=== PATIENT | female | born 1995 | race Caucasian/White ===

== ENCOUNTER 2022-12-11 11:14 | Outpatient (CLI) | payer OTHER, SELFPAY ==
[2022-12-11 12:16] LABS: Basophils Percent Auto 0.4 % (0.2-1.2); Eosinophils Absolute Auto 0.1 K/mm3 (0-0.3); Eosinophils Percent Auto 0.7 % (0-4.4); Hematocrit 38.9 % (37.0-47.0); Hemoglobin 12.7 g/dL (12.0-15.0); Immature Granulocyte Absolute 0.01 K/mm3 (0.00-0.031); Immature Granulocyte Percent A 0.1 % (0-0.5); Lymphocytes Absolute Auto 1.54 K/mm3 (0.9-3.2); Lymphocytes Percent Auto 22.5 % (18.3-44.2); Mean Corpuscular HGB Conc 32.6 g/dl (32-36); Mean Corpuscular Hemoglobin 29.6 pg (26-34); Mean Corpuscular Volume 90.7 fl (80-100); Mean Platelet Volume 10.9 fl (7.4-10.4); Monocytes Absolute Auto 0.6 K/mm3 (0.1-0.6); Monocytes Percent Auto 8.5 % (2.6-8.5); Neutrophils Absolute Auto 4.6 K/mm3 (1.3-6.7); Neutrophils Percent Auto 67.8 % (45.5-73.1); Platelet Count Result 220 k/mm3 (150-375); Red Blood Count 4.29 M/mm3 (4.2-5.4); Red Cell Distribution Width 12.7 % (11.5-14.5); White Blood Count 6.9 K/mm3 (4.5-10.0)
[2022-12-11 13:02] LABS: Hepatitis B Surface Antigen Negative (Negative); Rubella IgG Antibody 20.6 IU/ML
[2022-12-11 13:09] LABS: HIV 1/2 Ab P24 Ag Result Negative (Negative)
[2022-12-11 14:26] LABS: Rapid Plasma Reagin Non-Reactive (NonReactive)
== END 2022-12-11 11:15 | disposition home or self-care (01) ==
PROVIDERS: Visit Provider Student in an Organized Health Care Education/Training Program
DX: N94.89 Other specified conditions associated with female genital organs and menstrual cycle (principal)
CPT/HCPCS: 36415; 84702; 85025; 86592; 86644; 86703; 86747; 86762; 86787; 86850; 86900; 86901; 87086; 87340; G0432

== ENCOUNTER 2023-01-13 15:37 | Emergency (ER) | payer OTHER, SELFPAY ==
[2023-01-13 15:47] VITALS: BP 97/58; PULSE 97; RESP 16; TEMP 37; O2SAT 99
== END 2023-01-13 17:36 | disposition left against medical advice (07) ==
PROVIDERS: Emergency Provider Nurse Practitioner Family
DX: Z53.21 Procedure and treatment not carried out due to patient leaving prior to being seen by health care provider (principal)
CPT/HCPCS: 99199

== ENCOUNTER 2023-04-18 07:35 | Observation (INO) | payer OTHER, SELFPAY ==
[2023-04-18 08:30] VITALS: BP 92/46; PULSE 78; RESP 16; TEMP 37; BMI 22.2
--- NOTE | 2023-04-18 08:30 | OBADM ---
This patient, Carleen Jauregui, admitted to the OB room 116 for observation. Patient/family oriented to hospital policies and general routines including ID bracelet, bed and alarms, visiting hours, pain management, procedures, bathroom and other care routines, personal items, smoking policy, room service/diet, and visiting hours. Patient/Family are encouraged to report perceived risks to care and to ask questions if they do not understand what they are told or what they should do.
[2023-04-18 08:32] VITALS: BP 94/41; PULSE 79
[2023-04-18 09:08] VITALS: BP 99/54; PULSE 79
--- NOTE | 2023-04-19 12:13 | PM.OBTRLD ---
OB - Triage/Final Diagnosis Visit Information Comments/Additional reasons for admission: I have assessed the risk for this patient, Carleen Jauregui, and determined that she would benefit from observation care. Final Diagnosis (1) Abdominal pain affecting : Code(s): O26.899 - Other specified related conditions, unspecified trimester; R10.9 - Unspecified abdominal pain Status: Acute
== END 2023-04-18 09:57 | disposition home or self-care (01) ==
LOC: ANHLDR 04-19 09:40 → ANHOBPP 04-19 09:40
PROVIDERS: Admitting Provider Obstetrics & Gynecology; Visit Provider Obstetrics & Gynecology
DX: O26.892 Other specified pregnancy related conditions, second trimester (principal); R10.9 Unspecified abdominal pain; Z3A.26 26 weeks gestation of pregnancy
CPT/HCPCS: G0378; G0379

== ENCOUNTER 2023-05-06 12:02 | Outpatient (CLI) | payer OTHER, SELFPAY ==
[2023-05-06 13:49] LABS: Basophils Percent Auto 0.3 % (0.2-1.2); Eosinophils Absolute Auto 0.1 K/mm3 (0-0.3); Hematocrit 35.1 % (37.0-47.0); Hemoglobin 10.9 g/dL (12.0-15.0); Immature Granulocyte Absolute 0.03 K/mm3 (0.00-0.031); Immature Granulocyte Percent A 0.3 % (0-0.5); Lymphocytes Absolute Auto 1.22 K/mm3 (0.9-3.2); Lymphocytes Percent Auto 13.8 % (18.3-44.2); Mean Corpuscular HGB Conc 31.1 g/dl (32-36); Mean Corpuscular Hemoglobin 29.1 pg (26-34); Mean Corpuscular Volume 93.9 fl (80-100); Mean Platelet Volume 10.6 fl (7.4-10.4); Monocytes Absolute Auto 0.5 K/mm3 (0.1-0.6); Monocytes Percent Auto 5.8 % (2.6-8.5); Neutrophils Percent Auto 78.8 % (45.5-73.1); Platelet Count Result 195 k/mm3 (150-375); Red Blood Count 3.74 M/mm3 (4.2-5.4); Red Cell Distribution Width 13.8 % (11.5-14.5); White Blood Count 8.9 K/mm3 (4.5-10.0)
[2023-05-06 14:05] LABS: Glucose 1 Hour PP 50gm Dose 134 mg/dL
[2023-05-06 14:39] LABS: HIV 1/2 Ab P24 Ag Result Negative (Negative)
== END 2023-05-06 12:03 | disposition home or self-care (01) ==
LOC: ANHLAB 12:05
PROVIDERS: Visit Provider Obstetrics & Gynecology
DX: Z34.90 Encounter for supervision of normal pregnancy, unspecified, unspecified trimester (principal); Z3A.00 Weeks of gestation of pregnancy not specified
CPT/HCPCS: 36415; 82947; 85025; 86703; G0432

== ENCOUNTER 2023-05-10 07:31 | Outpatient (CLI) | payer OTHER, SELFPAY ==
[2023-05-10 08:26] LABS: Glucose Fasting Gestational 83 mg/dL (>/=95)
[2023-05-10 10:51] LABS: Glucose 1 Hour Gest 158 mg/dL (>/=180)
[2023-05-10 11:09] LABS: Glucose 2 Hour Gest 163 mg/dL (>/= 155)
[2023-05-10 12:19] LABS: Glucose 3 Hour Gest 107 mg/dL (>/=140)
== END 2023-05-10 07:32 | disposition home or self-care (01) ==
LOC: ANHLAB 07:34
PROVIDERS: Visit Provider Obstetrics & Gynecology
DX: R73.09 Other abnormal glucose (principal)
CPT/HCPCS: 36415; 82951; 82952

== ENCOUNTER 2023-06-07 09:10 | Outpatient (CLI) | payer OTHER, SELFPAY ==
--- NOTE | ~2023-06-07 | US_ITS ---
EXAMINATION: US OB follow up DATE: 06/07/2023 09:38 INDICATION: Evaluate growth and amniotic fluid index TECHNIQUE: Real-time transabdominal obstetric ultrasound. FINDINGS: No prior studies for comparison. There is a single living fetus in vertex presentation. The placenta is posterior without placenta pr evia. Cervical length 3.1 cm. ANDREW is normal measuring 12.1 cm. cardiac activity and movement is noted with a heart rate of 137 beats per minute. T he amniotic fluid volume is normal. The following biometric data were obtained: BPD: 83mm corresponds to gestational age 33 weeks 2 days. Head circumference: 313mm corresponds to gestational age 35 weeks 1 days. Abdominal circumference: 303mm corresponds to gestational age 34 weeks 2 days. Femur length: 66mm corresponds to gestational age 34 weeks 0 days. Estimated weight: 2371grams +/- 356grams, 65.9%.] IMPRESSION: 1. Single living intrauterine in vertex presentation with an estimated gestational age of 34 weeks 1 days by current ultrasound. 2. Normal placenta. Reviewed, dictated and finalized at location B. IMPRESSION: 1. Single living intrauterine in vertex presentation with an estimat ed gestational age of 34 weeks 1 days by current ultrasound. 2. Normal placenta.
== END 2023-06-07 09:11 ==
LOC: MICIMG 09:10
PROVIDERS: PCP Obstetrics & Gynecology; Visit Provider Obstetrics & Gynecology
DX: Z34.93 Encounter for supervision of normal pregnancy, unspecified, third trimester (principal); Z3A.34 34 weeks gestation of pregnancy
CPT/HCPCS: 76816

== ENCOUNTER 2023-06-15 23:41 | Observation (INO) | payer OTHER, SELFPAY ==
[2023-06-16 00:06] VITALS: BP 116/68; PULSE 97
[2023-06-16 00:14] VITALS: BMI 25.2
--- NOTE | 2023-06-16 00:14 | OBADM ---
This patient, Carleen Jauregui, admitted to the OB room Labor/Delivery/Recovery 104 for observation. Patient/family oriented to hospital policies and general routines including ID bracelet, bed and alarms, visiting hours, pain management, procedures, bathroom and other care routines, personal items, smoking policy, room service/diet, and visiting hours. Patient/Family are encouraged to report perceived risks to care and to ask questions if they do not understand what they are told or what they should do.
[2023-06-16 00:56] LABS: Appearance Urine Cloudy (Clear); Bacteria Urine None Seen /hpf; Bilirubin Urine Negative (Negative); Blood Urine Negative (Negative); Color Urine Yellow (Yellow); Glucose Urine UA Negative (Negative); Ketones Urine Negative (Negative); Leukocyte Esterase Ur 1+ LEU/UL (Negative); Nitrate Urine Negative (Negative); Non Pathogenic Casts 0-2; Protein Urine Negative (Negative); RBC Urine 0-2 /hpf (0-2); Specific Grav Ur 1.015 (1.001-1.035); Squamous Epithelial Cell Urine Occasional /hpf (Few); WBC Urine 0-5 /hpf (0-3)
[2023-06-16 00:57] LABS: Need Manual Microscopic Reviewed
[2023-06-16 00:58] LABS: Add Urine Microscopic? YES
[2023-06-16 01:00] VITALS: TEMP 36.6
--- NOTE | 2023-06-18 08:23 | P.PNOB_ITS ---
OB - Triage/Final Diagnosis Visit Information Reason for evaluation: threatened labor Comments/Additional reasons for admission: I have assessed the risk for this patient, Carleen Jauregui, and determined that she would benefit from observation care. Evaluation Laboratory results: Laboratory Tests 06/16/23 00:33 Urine Color Yellow Urine Appearance Cloudy H Urine pH 7.0 Ur Specific [place] 1.015 Urine Protein Negative Urine Glucose (UA) Negative Urine Ketones Negative Ur Blood (Man) Negative Urine Nitrate Negative Urine Bilirubin Negative Urine Urobilinogen 1.0 Add Ur Microanalysis Reviewed Leukocyte Esterase Rfl 1+ H Urine RBC 0-2 Urine WBC 0-5 Ur Squamous Epith Cells Occasional Urine Bacteria None seen Urine Casts 0-2
== END 2023-06-16 01:22 ==
PROVIDERS: Admitting Provider Obstetrics & Gynecology; PCP Obstetrics & Gynecology; Visit Provider Obstetrics & Gynecology
DX: O47.03 False labor before 37 completed weeks of gestation, third trimester (principal); Z3A.34 34 weeks gestation of pregnancy
CPT/HCPCS: 81001; G0378; G0379

== ENCOUNTER 2023-06-26 16:27 | Outpatient (RCR) | payer OTHER, SELFPAY ==
[2023-06-26 17:06] VITALS: BP 110/65; PULSE 85
== END 2023-09-24 23:59 | disposition home or self-care (01) ==
LOC: ANHOBOP 16:27
PROVIDERS: Visit Provider Obstetrics & Gynecology
DX: O36.8130 Decreased fetal movements, third trimester, not applicable or unspecified (principal); Z3A.36 36 weeks gestation of pregnancy
CPT/HCPCS: 59025

== ENCOUNTER 2023-06-27 06:35 | Observation (INO) | payer OTHER, SELFPAY ==
[2023-06-27 06:45] VITALS: BP 125/80; PULSE 110
[2023-06-27 07:00] VITALS: BP 119/62; PULSE 84; BMI 25.9
--- NOTE | 2023-06-27 07:00 | OBADM ---
This patient, Carleen Jauregui, admitted to the OB room Labor/Delivery/Recovery 104 for observation for contractions. Patient/family oriented to hospital policies and general routines including ID bracelet, bed and alarms, visiting hours, pain management, procedures, bathroom and other care routines, personal items, smoking policy, room service/diet, and visiting hours. Patient/Family are encouraged to report perceived risks to care and to ask questions if they do not understand what they are told or what they should do.
[2023-06-27 08:00] VITALS: BP 98/74; PULSE 81
[2023-06-27 09:00] VITALS: BP 103/56; PULSE 70
--- NOTE | 2023-07-02 10:35 | PM.OBTRLD ---
OB - Triage/Final Diagnosis Visit Information Reason for evaluation: threatened labor Comments/Additional reasons for admission: I have assessed the risk for this patient, Carleen Jauregui, and determined that she would benefit from observation care.
== END 2023-06-27 09:57 | disposition home or self-care (01) ==
PROVIDERS: Admitting Provider Obstetrics & Gynecology; Visit Provider Obstetrics & Gynecology
DX: O47.03 False labor before 37 completed weeks of gestation, third trimester (principal); Z3A.36 36 weeks gestation of pregnancy
CPT/HCPCS: G0378; G0379

== ENCOUNTER 2023-07-11 05:55 | Inpatient (IN) | payer OTHER, SELFPAY ==
[2023-07-11] VITALS (35 sets, daily range): BP systolic 91–150; BP diastolic 40–98; PULSE 59–126; RESP 16–22; TEMP 36.5–36.9; O2SAT 98–100; BMI 25.9
[2023-07-11] MEDS: LACTATED RINGERS 1,000 ML 125 ML IV CONT ×2 (06:09→07:43)
[2023-07-11 06:33] LABS: Basophils Percent Auto 0.3 % (0.2-1.2); Eosinophils Absolute Auto 0.2 K/mm3 (0-0.3); Eosinophils Percent Auto 1.4 % (0-4.4); Hematocrit 34.1 % (37.0-47.0); Immature Granulocyte Absolute 0.04 K/mm3 (0.00-0.031); Immature Granulocyte Percent A 0.3 % (0-0.5); Lymphocytes Absolute Auto 1.97 K/mm3 (0.9-3.2); Lymphocytes Percent Auto 16.1 % (18.3-44.2); Mean Corpuscular HGB Conc 32.3 g/dl (32-36); Mean Corpuscular Hemoglobin 28.7 pg (26-34); Mean Platelet Volume 11.6 fl (7.4-10.4); Neutrophils Percent Auto 73.9 % (45.5-73.1); Platelet Count Result 204 k/mm3 (150-375); Red Blood Count 3.83 M/mm3 (4.2-5.4); Red Cell Distribution Width 13.8 % (11.5-14.5); White Blood Count 12.2 K/mm3 (4.5-10.0)
--- NOTE | 2023-07-11 06:45 | LDADM ---
This patient, Carleen Jauregui, was admitted to Labor/Delivery/Recovery 105 on 07/11/23 at 05:55. Plans for labor, pain management and were discussed with patient. Patient/family oriented to hospital policies and general routines including ID bracelet, bed and alarms, visiting hours, pain management, procedures, bathroom and other care routines, personal items, smoking policy, room service/diet and guest tray routines, security routines, and visiting hours. Patient/Family are encouraged to report perceived risks to care and to ask questions if they do not understand what they are told or what they should do. See OBIX for further documentation.
[2023-07-11] MEDS: ONDANSETRON INJ 4 MG/2 ML VIAL IV PUSH (06:49)
--- NOTE | 2023-07-11 06:57 | WPDANESEPP ---
Anes - Eval Pre Procedure Procedure: Labor epidural Date/Time: 07/11/23 06:57 Surgeon: Vanna Preop Diagnosis: Pain during labor Pre Op Diagnosis: Labor Patient Data Age: 28 Gender: F Height: Weight: Last Vital Signs Pulse 81 07/11/23 06:30 BP 117/70 07/11/23 06:30 Allergies Allergy/AdvReac Type Severity Reaction Status Date / Time No Known Allergies Allergy Verified 07/10/23 15:30 Home Medications Medication Instructions Recorded Confirmed Type vits no.126-ferrous fum 1 tablet PO DAILY 12/11/22 07/11/23 History 28 mg iron-folic acid 800 mcg tablet (Classic ) aspirin 81 mg tablet,delayed 81 mg PO DAILY 04/05/23 07/11/23 History release (Adult Low Dose Aspirin) Laboratory Tests 07/11/23 06:27 WBC 12.2 H K/mm3 (4.5-10.0) RBC 3.83 L M/mm3 (4.2-5.4) Hgb 11.0 L g/dL (12.0-15.0) Hct 34.1 L % (37.0-47.0) MCV 89.0 fl (80-100) MCH 28.7 pg (26-34) MCHC 32.3 g/dl (32-36) RDW 13.8 % (11.5-14.5) Plt Count 204 k/mm3 (150-375) MPV 11.6 H fl (7.4-10.4) Immature Gran % (Auto) 0.3 % (0-0.5) Neut % (Auto) 73.9 H % (45.5-73.1) Lymph % (Auto) 16.1 L % (18.3-44.2) Cocke % (Auto) 8.0 % (2.6-8.5) Eos % (Auto) 1.4 % (0-4.4) Baso % (Auto) 0.3 % (0.2-1.2) Lymph # (Auto) 1.97 K/mm3 (0.9-3.2) Cocke # (Auto) 1.0 H K/mm3 (0.1-0.6) Eos # (Auto) 0.2 K/mm3 (0-0.3) Baso # (Auto) 0.0 K/mm3 (0.0-0.1) Abs Immat Gran (auto) 0.04 H K/mm3 (0.00-0.031) Absolute Neuts (auto) 9.0 H K/mm3 (1.3-6.7) Absolute Nucleated RBC 0.000 K/mm3 (0.0-0.012) Nucleated RBC % 0.0 % (0.0-0.2) RPR Pending HIV 1&2 Ab/P24 Ag 4thGn Pending Patient hx anesthesia problems: none Family hx anesthesia problems: none Results Review: All pre-operative results and documents have been reviewed as part of the pre-operative evaluation. FOR[facility]LY [facility] Past Medical History Medical History Suppression of menses Family History Family History Grandparent Breast cancer Other Ovarian cancer Social History Social History Smoking status: Former smoker Smoking end date: 02/11/19 Alcohol intake: former Alcohol use details: social Substance use: never Substance use type: does not use Do You Feel Safe in your Home?: Yes Lack of Transportation: No Lack of Food: Never True Current Housing: I Have Housing Concerned About Future Housing: No Difficulty Paying Gas/Electric Bills: No Difficulty Paying for Meds: No Currently Unemployed: No Education: High School Diploma/GED Living arrangements: with family Occupation/Education: unemployed Gender identity (if verbalized by the patient): Female Sexual Orientation (if Verbalized by the Patient): Straight or Heterosexual Spiritual care concerns: No Exam Day of Procedure 07/11/23 06:57 Heart: regular rate and rhythm Lungs: clear to auscultation Airway: Mallampati scale Neurological: alert and oriented
[2023-07-11] MEDS: OXYTOCIN 30 UNITS/NS 500 ML 30 UNITS/500 ML BAG 999 UNITS IV CONT (07:16)
--- NOTE | 2023-07-11 07:27 | WPDHPUPDATE1 ---
History and Physical Update Update Date/Time: 07/11/23 07:27 History and Physical has been reviewed, including an updated exam of the patient. There are NO changes in the patient's condition. Risks, benefits, and alternatives have been discussed and questions answered. Patient agrees to proceed with procedure.
--- NOTE | 2023-07-11 07:27 | WPDOBADMIT ---
Obstetrics - Admit Note Admission Note: record reviewed. No pertinent additions to the history and/or any subsequent changes in the physical findings that are not consistent with the expected course of the were found. Additions to the history and/or subsequent changes in the physical findings follow. None.
--- NOTE | 2023-07-11 07:27 | PM.OBPRVD ---
OB - Vaginal Delivery Note Procedure Delivery date: 07/11/23 Delivery monitor: External FHT and External Uterine Route of delivery: Episiotomy description: None Laceration Description: None Specimen: No Quantitative Blood Loss (ml): 200 Anesthesia type: Epidural Disposition: Floor Complications: No immediate complications Narrative: Patient prepped and draped in the usual manner for this procedure. Maternal expulsive efforts readily delivered vertex over intact perineum. Rest of baby was delivered without difficulty, cord clamped cut and baby was passed off the field to the pediatric nurse in attendance. Placenta delivered spontaneously, uterus was well contracted. Cervix vagina vulva were inspected with no significant lacerations or tears. Immediate postoperative condition of mother and baby both excellent. [place] Baby Weeks of gestation at delivery: 38 Infant gender: Female Weight (pounds): 7 Weight (ounces): 11 presentation: vertex position: Right Occiput Anterior Placenta delivery description: Spontaneous Cord Vessel Description: 3 Vessels score one minute: 8 score five minutes: 9
[2023-07-11 07:28] LABS: HIV 1/2 Ab P24 Ag Result Negative (Negative)
[2023-07-11] MEDS: OXYTOCIN 30 UNITS/NS 500 ML 30 UNITS/500 ML BAG 125 UNITS IV CONT (07:55)
[2023-07-11] MEDS: WITCH HAZEL 40 PADS 1 PAD TOPICAL (09:26)
[2023-07-11] MEDS: IBUPROFEN 600 MG TABLET PO ×2 (09:26→22:27)
[2023-07-11] MEDS: BENZOCAINE 20% AER SPR (*SP) 56 GM CAN 1 SPRAY TOPICAL (09:26)
[2023-07-11] MEDS: ACETAMINOPHEN 325 MG TABLET 650 MG PO ×3 (09:27→22:27)
--- NOTE | 2023-07-11 10:52 | OBPPTRN ---
1018-Patient transferred to post room #278 via wheelchair. Support person present. Oriented to unit, room, information board, rooming in, admission packet and security measures. Patient verbalizes understanding.
[2023-07-11 13:14] LABS: Rapid Plasma Reagin Non-Reactive (NonReactive)
--- NOTE | 2023-07-11 15:43 | PC.NURSE ---
[id number] Introductions were made to offer services. Mother is holding infant with an open bottle and personal pump at bedside. Mother declines support and shares she plans on bottle feeding with formula and pumping to bottle feed like she did with her other children.
--- NOTE | 2023-07-11 22:41 | PC.NURSE ---
Pt c/o toothache, states she has dentures on top and that she is looking for a dentist. Motrin/tylenol given for pain
[2023-07-12] MEDS: HYDROcodone/acetaminophen (*CRX) 5-325 MG TABLET 1 TAB PO (04:56)
[2023-07-12] MEDS: IBUPROFEN 600 MG TABLET PO ×2 (04:56→10:43)
[2023-07-12 06:15] LABS: Hematocrit 31.2 % (37.0-47.0); Hemoglobin 9.5 g/dL (12.0-15.0)
[2023-07-12 07:37] VITALS: BP 106/54; PULSE 62; RESP 18; TEMP 36.7; O2SAT 97
--- NOTE | 2023-07-12 09:13 | P.DS_ITS ---
DS: Admitting Diagnosis Discharge Date 07/12/23 Admitting Diagnosis intrauterine at term DS: Discharge Diagnosis Discharge Diagnosis (1) Normal vaginal delivery: Code(s): O80 - Encounter for full-term uncomplicated delivery Status: Acute OB - DS: Summary OB Procedures : None OB Procedures Intrapartum: Spontaneous Vag Delivery OB Procedures: : None Peripartum Data Laceration Description: None Episiotomy description: None Status at Discharge Functional status at discharge: independent ambulation Overall status at discharge: patient is back to baseline Time Spent with Patient Time attestation: Total time spent providing and/or coordinating discharge services: Time spent: Less than 30 minutes Exam Const: General: comfortable and no acute distress Resp: Effort & Inspection: normal respiratory effort Auscultation: clear to auscultation bilaterally Cardio: Rate: regular rate GI: GI Palp: Yes Soft to palpation Auscultation: normal bowel sounds Other: Fundus firm below umbilicus Psych: Appearance: grossly normal Mental Status: mental status grossly normal Affect: normal affect DS: Data Data Completed and Pending Labs on day of discharge: Labs from last 24 hours 07/12/23 07/11/23 04:57 06:27 Hgb 9.5 L Hct 31.2 L RPR Non-reactive Discharge Plan Discharge Discharging Clinician: Manpreet Santana Patient Disposition: Home, Self-Care Activity: as tolerated and pelvic rest Diet: regular Patient Instructions: Antibiotic Form, Vaginal Delivery (DC) Stand Alone Forms: General Discharge Information Follow-up/Referrals: Randell Prabhakar MD [Physician] - 4 Weeks Discharge Medications: New ferrous sulfate [FeroSul] 325 mg (65 mg iron) tablet 325 mg PO DAILY Qty: 60 0RF acetaminophen 500 mg tablet 500 mg PO Q6H PRN (Reason: pain) Qty: 30 0RF ibuprofen 600 mg tablet 600 mg PO Q6H PRN (Reason: pain) Qty: 30 0RF Continued Classic 28 mg iron- 800 mcg tablet 1 tablet PO DAILY Discontinued aspirin [Adult Low Dose Aspirin] 81 mg tablet,delayed release (DR/EC) 81 mg PO DAILY Date of admission: 07/11/23 05:55 Primary Care Provider: PHYSICIAN,HEARING AID REPAIRER Admitting Provider: Randell Prabhakar Attending physician on admission: Randell Prabhakar Condition: Stable
[2023-07-12] MEDS: MULTIVIT/MIN/PREN/FOL AC/IRON TABLET 1 TAB PO (10:45)
[2023-07-12] MEDS: POLYSACCHARIDE IRON COMPLEX 150 MG CAPSULE PO (10:45)
[2023-07-12] MEDS: DOCUSATE SODIUM 100 MG CAPSULE PO (10:46)
--- NOTE | 2023-07-12 12:46 | WPDANLDPN2 ---
Anes-Prog Note L&D Date/Time: 07/12/23 12:46 Comfortable throughout: labor and delivery Neuraxial method: epidural Epidural/Spinal procedure site: clean & non-tender Neuro status: Neuro function grossly intact. Cardiovascular status: normal Respiratory status: normal Airway patency: baseline Mental status: baseline Post-Op hydration status: normal Vital Signs: Last Vital Signs Temp 36.7 C 07/12/23 07:37 Pulse 62 07/12/23 07:37 Resp 18 07/12/23 07:37 BP 106/54 L 07/12/23 07:37 Pulse Ox 97 07/12/23 07:37 O2 Del Method Room Air 07/11/23 19:00 Pain score (VAS): 2 Post-procedural complaints: none Patient feedback: Patient satisfied with anesthetic care.
--- NOTE | 2023-07-12 12:59 | WPDANLDPN2 ---
Anes-Prog Note L&D Date/Time: 07/12/23 12:59 Comfortable throughout: labor and delivery Neuraxial method: epidural Epidural/Spinal procedure site: clean & non-tender Neuro status: Neuro function grossly intact. Cardiovascular status: normal Respiratory status: normal Airway patency: baseline Mental status: baseline Post-Op hydration status: normal Vital Signs: Last Vital Signs Temp 36.7 C 07/12/23 07:37 Pulse 62 07/12/23 07:37 Resp 18 07/12/23 07:37 BP 106/54 L 07/12/23 07:37 Pulse Ox 97 07/12/23 07:37 O2 Del Method Room Air 07/11/23 19:00 Pain score (VAS): 0 Post-procedural complaints: none Patient feedback: Patient satisfied with anesthetic care.
--- NOTE | 2023-07-12 18:52 | PC.NURSE ---
1100 Patient viewed the discharge video Mother & Baby Care, The First Two Weeks . Patient was given the opportunity and encouraged to ask questions. Patient verbalized understanding of information shared and has been given the mother/baby guide for home reference.
[2023-07-13 09:26] VITALS: BP 118/71; PULSE 82; RESP 12; TEMP 36.9; O2SAT 100
== END 2023-07-12 16:45 | disposition home or self-care (01) | DRG 807 ==
LOC: ANHLDR 06:32 → ANHOB2 07-12 09:15 → ANHLDR 07-15 08:36 → ANHOB2 07-15 08:36
PROVIDERS: Admitting Provider Obstetrics & Gynecology; Visit Provider Student in an Organized Health Care Education/Training Program
DX: O80 Encounter for full-term uncomplicated delivery (principal); Z37.0 Single live birth; Z3A.38 38 weeks gestation of pregnancy
CPT/HCPCS: 36415; 85014; 85018; 85025; 86592; 86703; 86850; 86900; 86901; A9270; G0432; J2405; J2590; J2795; J7120

== ENCOUNTER 2023-09-09 15:29 | Outpatient (CLI) | payer OTHER, SELFPAY ==
[2023-09-09 16:09] LABS: Hematocrit 39.2 % (37.0-47.0); Hemoglobin 12.6 g/dL (12.0-15.0); Mean Corpuscular HGB Conc 32.1 g/dl (32-36); Mean Corpuscular Hemoglobin 28.4 pg (26-34); Mean Corpuscular Volume 88.5 fl (80-100); Mean Platelet Volume 10.4 fl (7.4-10.4); Platelet Count Result 222 k/mm3 (150-375); Red Blood Count 4.43 M/mm3 (4.2-5.4); Red Cell Distribution Width 13.6 % (11.5-14.5); White Blood Count 4.8 K/mm3 (4.5-10.0)
== END 2023-09-09 15:30 | disposition home or self-care (01) ==
LOC: ANHSURGERY 15:44
PROVIDERS: Visit Provider Obstetrics & Gynecology
DX: Z30.09 Encounter for other general counseling and advice on contraception (principal)
CPT/HCPCS: 36415; 85027

== ENCOUNTER 2023-09-12 01:49 | Day surgery (SDC) | payer OTHER, SELFPAY ==
[2023-09-05 15:08] VITALS: BMI 22.7
--- NOTE | 2023-09-05 15:13 | PC.NURSE ---
Report to the Outpatient Waiting Room, entrance under the green pavilion located off [facility], at time _0845_ on date _[id number]_. Planned Procedure Time: _1045_. Time changes happen often and if your time is changed the preop area will call you the afternoon before. - You and your visitor will be asked to self-screen and do not enter if you have any COVID symptoms. - A mask is optional within the hospital at this time. Patients may have clear liquids (water, carbonated beverages, clear teas, apple juice) until 3 hours prior to surgery with a maximum of 20 ounces. - No food from midnight until time of surgery Take the following medications with a SIP of water the morning of surgery: ___None DO NOT STOP ANY OF YOUR OTHER PRESCRIPTION MEDICATIONS PRIOR TO SURGERY ?EXCEPT THE FOLLOWING Medications to discontinue per physician None Date to take last dose Please no make-up, nail lithuanian, hairspray, perfume, deodorant, or body powder the day of surgery. No jewelry (including any body piercings) or valuables the day of surgery, leave them at home. Please take a shower or bath the night before, or the morning of, surgery with an antibacterial soap. Wear comfortable, loose fitting clothing. - Jewelry must be removed prior to entering the operating room. Rings and piercings that are not removed may be cut off. - The hospital will not accept responsibility for valuables. - Please leave all valuables, including medications, at home the day of surgery. If you are going home after surgery, a licensed show horse driver must drive you home. - NO public transportation without another adult if you receive anesthesia. - We recommend that an adult stay with you for 24 hours following discharge. - We also recommend that you do not drive, make important decision, drink alcoholic beverages, or take any drugs that were not prescribed by your health care provider for at least 24 hours after your discharge time. Follow any additional instructions given to you from your surgeon. If you or anyone in your household have experienced Covid symptoms in the past week, please notify your surgeon or the nurse liaison at the phone number below for possible testing. Telephone instructions given to ___Alysa___and asked if any additional questions and then verbalized understanding. Patient advised to call surgeon office or pre surgery nurse liaison [phone] if any additional questions.
[2023-09-12] VITALS (9 sets, daily range): BP systolic 103–110; BP diastolic 54–92; PULSE 59–84; RESP 12–18; TEMP 36.2–36.7; O2SAT 99–100; BMI 22.6
--- NOTE | 2023-09-12 07:19 | P.HP_ITS ---
H&P: HPI History of Present Illness Date/Time: 09/12/23 07:19 28-year-old female 4 para 3013 presents desiring permanent sterilization. We have discussed the permanence, failure rate, incidence of regret and increased risk of ectopic. Patient states good understanding and strongly desires to proceed with salpingectomy. Chief Complaint: Undesired fertility Review of Systems Review of Systems: All systems reviewed & are unremarkable except as noted in HPI and below PMFSH Past Medical History Medical History Suppression of menses Family History Family History Grandparent Breast cancer Other Ovarian cancer Other No pertinent family history in first degree relatives Social History Social History Smoking packs per day: 1 Smoking cigarettes per day: 20.0 Years smoked: 6.5 Smoking pack-years: 6.50 Smoking status: Former smoker Tobacco type: e-cigarettes/vaping Second hand tobacco smoke exposure: No Smoking end date: 02/11/19 Alcohol intake: current Alcohol use details: social Substance use: never Substance use type: does not use Do You Feel Safe in your Home?: Yes Lack of Transportation: No Lack of Food: Never True Current Housing: I Have Housing Concerned About Future Housing: No Difficulty Paying Gas/Electric Bills: No Difficulty Paying for Meds: No Currently Unemployed: No Education: High School Diploma/GED Difficulty w/ Childcare or Family Care: No Living arrangements: with family Occupation/Education: unemployed Gender identity (if verbalized by the patient): Female Sexual Orientation (if Verbalized by the Patient): Straight or Heterosexual Spiritual care concerns: No Meds Home Medications and Allergies Home Medications Medication Instructions Recorded Confirmed Type No Home Medications 09/05/23 09/05/23 History Allergies Allergy/AdvReac Type Severity Reaction Status Date / Time No Known Allergies Allergy Verified 09/05/23 15:08 Exam Resp: Effort & Inspection: normal respiratory effort Auscultation: clear to auscultation bilaterally Cardio: Rate: regular rate Rhythm: regular rhythm GI: Inspection: normal to inspection Auscultation: normal bowel sounds : External Female Exam: normal external appearance Speculum Exam - Vagina: normal appearance of the vagina Speculum Exam - Cervix: normal maryanne earance of the cervix Bimanual exam- vagina & uterus: normal bimanual exam Bimanual Exam- Adnexa, other: normal adnexae Assessment and Plan Assessment and plan (1) Encounter for female sterilization procedure: Code(s): Z30.2 - Encounter for sterilization Status: Acute Plan 1. Proceed with laparoscopic bilateral salpingectomy
--- NOTE | 2023-09-12 07:21 | WPDHPUPDATE1 ---
History and Physical Update Update Date/Time: 09/12/23 07:21 History and Physical has been reviewed, including an updated exam of the patient. There are NO changes in the patient's condition. Risks, benefits, and alternatives have been discussed and questions answered. Patient agrees to proceed with procedure.
--- NOTE | 2023-09-12 07:53 | WPDANESEPPF ---
Anes - Initial Pre Proc Eval Procedure: Operation Date: 09/12/23 10:45 Proposed Procedures p Bilateral Laparoscopic Salpingectomy - Randell Prabhakar MD Date/Time: 09/12/23 07:53 Surgeon: Randell Prabhakar MD Pre Op Diagnosis: desires sterilization Patient Data Age: 28 Gender: F Height: 1.7 m Weight: 65.9 kg Allergies Allergy/AdvReac Type Severity Reaction Status Date / Time No Known Allergies Allergy Verified 09/12/23 09:26 Home Medications Medication Instructions Recorded Confirmed Type No Home Medications 09/05/23 09/12/23 History Patient hx anesthesia problems: none Family hx anesthesia problems: none Results Review: All pre-operative results and documents have been reviewed as part of the pre-operative evaluation. FORMERLY [facility] Past Medical History Medical History Suppression of menses Family History Family History Grandparent Breast cancer Other Ovarian cancer Other No pertinent family history in first degree relatives Social History Social History Smoking packs per day: 1 Smoking cigarettes per day: 20.0 Years smoked: 6.5 Smoking pack-years: 6.50 Smoking status: Former smoker Tobacco type: e-cigarettes/vaping Second hand tobacco smoke exposure: No Smoking end date: 02/11/19 Alcohol intake: current Alcohol use details: social Substance use: never Substance use type: does not use Do You Feel Safe in your Home?: Yes Lack of Transportation: No Lack of Food: Never True Current Housing: I Have Housing Concerned About Future Housing: No Difficulty Paying Gas/Electric Bills: No Difficulty Paying for Meds: No Currently Unemployed: No Education: High School Diploma/GED Difficulty w/ Childcare or Family Care: No Living arrangements: with family Occupation/Education: unemployed Gender identity (if verbalized by the patient): Female Sexual Orientation (if Verbalized by the Patient): Straight or Heterosexual Spiritual care concerns: No Anes - Eval Final PreProcedure Day of Procedure 09/12/23 07:53 Patient weight: normal Heart: regular rate and rhythm Lungs: clear to auscultation and normal air movement Airway: Mallampati scale class II Neurological: alert and oriented Last oral intake: >/= 8 hours ASA classification: II Emergent: no Anesthetic plan: proceed Anesthesia type and monitoring: general GIVS and standard monitoring Results Review: All pre-operative results and documents have been reviewed as part of the pre-operative evaluation. Informed Consent: The patient's anesthetic plan and its attendant risks and benefits were discussed with the patient/family/POA. Questions were solicited and answers provided to the satisfaction of the patient/family/POA.
[2023-09-12] MEDS: ACETAMINOPHEN 500 MG TABLET 1000 MG PO (09:24)
[2023-09-12] MEDS: LACTATED RINGERS 1,000 ML 30 ML IV CONT ×2 (09:24→11:06)
[2023-09-12] MEDS: KETOROLAC 15 MG/ML VIAL (*BKC) IV PUSH (09:24)
[2023-09-12 09:31] LABS: BEDSIDEPREGUCG Negative
--- NOTE | 2023-09-12 10:39 | W.PM.PROC2 ---
Procedure Note - Detailed Date of Procedure 09/12/23 Pre-op Diagnosis desires sterilization Post-op Diagnosis Same Procedure Performed Bilateral salpingectomy via laparoscopy Surgeon Randell Prabhakar MD Anesthesia General Findings Uterus tubes ovaries without abnormality Description of Procedure Patient prepped draped usual manner for this procedure. Cervical instruments were placed for uterine mobility throughout the case. Is 3 trocars were placed under direct visualization with findings as noted above. Mesial salpinx was cauterized and cut bilaterally and tubes removed without difficulty. Gas was allowed to escape, incisions approximated with 4-0 Monocryl patient then sent to the recovery room in stable condition. Estimated Blood Loss 10 Pathology Yes Complications No immediate complications Condition Stable Disposition PACU [facility] Billing Surgery - Charge Forward: Surgery Billing
--- NOTE | 2023-09-12 11:08 | SUR.OPER ---
called back to OR at 1055 by Kaur Fragoso for approximately 400 ml of blood and clots loss from vagina. Cavazos still in, urine yellow and clear. Vaginal exam done per surgeon at 1058. No further bleeding found. Abdomen remained soft. Cavazos DC'd at end of exam. To proceed to PACU as per surgeon. Peripad placed. Patient remained under general anesthesia until end of vaginal exam.
== END 2023-09-12 13:05 | disposition home or self-care (01) ==
PROVIDERS: Anesthesiology; Visit Provider Obstetrics & Gynecology
PROC: (CPT 49320; principal; 2023-09-12 10:45)
DX: Z30.2 Encounter for sterilization (principal); N83.8 Other noninflammatory disorders of ovary, fallopian tube and broad ligament; Z80.3 Family history of malignant neoplasm of breast; Z80.41 Family history of malignant neoplasm of ovary; F17.290 Nicotine dependence, other tobacco product, uncomplicated
CPT/HCPCS: 58661; 88302; A9270; J0330; J1100; J1885; J2250; J2405; J2704; J3010; J7030; J7120